=== PATIENT | female | born 1990 | race Caucasian/White ===

== ENCOUNTER 2016-12-23 16:41 | Emergency (ER) | payer SELFPAY ==
[~2016-12-23] VITALS: Ht 157.5 cm; Wt 70.3 kg
[~2016-12-23 16:41] MED LIST: APAP/BUTALBITAL1 TA1 PO; NOMEDS *; TYLENOL W/CODEI1 TA2 PO; VICODIN 5/500 T1 TAB PO; VOLTAREN75 MG PO; ZITHROMAX Z-PA250 M1 PO
[2016-12-23] MEDS ORDERED: ZOFRAN ODT4 MG PO (17:31)
--- NOTE | 2016-12-23 17:31 | [facility] Report ---
History of Present Issue Date/Time Seen by Provider 12/23/16 1723 Visit Reason Pt arrived:Walked Presenting Problem:PT STATES FEVER, VOMITING AND DIARRHEA FOR TWO DAYS Location if Accident: Onset of symptoms date/time:/ or onset unknown for:MEDICAL HX UNKNOWN Have you (or family members/close friends) recently traveled outside the [place]? N If Yes, where/when: Have you had exposure to infectious disease within the past month? TB? Other? Specify: c/o n/v/d since yesterday. "some better" today but sent home by work and needing note. Started yesterday. Vomited approx 6 times yesterda, only twice today. Loost diarrhea 4-6 times yesterday, only twice today. No blood, mucous, black in either stool or emesis. Denies abdominal pain or possibility of . Subjective fevers but afebrile. No treatment prior to arrival other than "not eating". Remains nauseated although eating very little. Still drinking well. Denies dysuria. Source patient Exam Limitations no limitations ALLERGIES Coded Allergies: No Known Allergies (12/11/16) Home Medications Reported Medications No Home Medications (NO HOME MEDICATIONS) 1 X * ONCE History Medical History General CAD? No Angina: No [place]: No Hypertension? No Hyperlipidemia? No CHF? No DVT? No PE? No COPD? No Asthma? No Anemia? No GERD? No Gastric ulcers? No GI Bleed? No Hernia? No Thyroid Problems? No Hypothyroidism? No CVA? No Seizures? No Diabetes? No Renal Insuffiency? No UTI? No Stones? No BPH? No GB Disease: No Nephritic Syndrome? No Asplenia? No Hepatitis? No Sickle Cell Disease? No Arthritis? No Migraines? No Cataracts? No Glaucoma? No MRSA? No HIV? No TB? No Anxiety? Yes Depression? Yes Cancer? No Site: N More? 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 Respiratory denies cough Cardiovascular denies chest pain Gastrointestinal see HPI Genitourinary see HPI. denies: frequency. Skin denies rash Psychiatric/Neurological headache Physical Exam Vital Signs Vital Signs Date Time Temp Pulse Resp B/P Pulse O2 O2 Flow FiO2 Ox Delivery Rate 12/23 1656 97.9 85 22 112/69 98 General Appearance normal appearance, no apparent distress Ear, Nose, Throat normal ENT inspection Neck non-tender Respiratory Status No: respiratory distress, productive cough, non productive cough. Lung Sounds anterior: lungs clear. posterior: lungs clear. bilateral: lungs clear. Cardiovascular regular rate/rhythm, no peripheral edema, no murmur Gastrointestinal non tender, soft, no organomegaly, abnormal bowel sounds ( hyperactive), no guarding, no rebound Back no CVA tenderness Neurologic alert, oriented x 3 Skin normal color, warm/dry Lymphatic no adenopathy Medical Decision Making LABS/Meds/Orders Pt receiving controlled substance in ED? No Results/Orders Current Medication Orders Sig/Lennox Start time Last Medication Dose Route Stop Time Status Admin Ondansetron HCl 4 MG ONCE ONE 12/23 1730 DC 12/23 IM 12/23 173 173 Ondansetron HCl 0 .STK-MED ONE 12/23 173 DC .ROUTE Departure Departure Time of Disposition 1729 Disposition DC Home or Self Care(routine) Clinical Impression Primary Impression: Viral gastroenteritis Condition STABLE Referrals NO REFERRAL See primary care or return here IMMEDIATELY for new or worsening symptoms OR no noticeable improvement over the next 48 hours Patient Instructions DI for Viral Gastroenteritis -- Adult Additional Instructions * zofran as needed. Should not cause drowsiness. You had this in clinic in shot form around 5:30pm * Monitor Temp. Tylenol every 4 hours as needed and/or ibuprofen every 6 hours as needed (as long as your primary care doctor has told you that it is ok to take both) for fever/aches/pain. ER if fever no less than 101 despite tylenol and ibuprofen * Follow up immediately for new or worsening symptoms OR no noticeable improvement over the next 48 hours. * Increase fluids. Water, gatorade, powerade, juice OR pedialyte with limited formula/dairy in children. * No food is ok as long as you or your child is drinking. Once ready to eat, start bland. bananas, rice, applesauce, toast * Contagious until no diarrhea, vomiting, fever x 24 hours without medication * Avoid anti-diarrheals unless told otherwise. Best to let the virus run its course. Follow up IMMEDIATELY for new or worsening symptoms OR no noticeable improvement over the next 48 hours. Discharge Counseling Counseled pt/family regarding diagnosis, medications/RX, home care, follow up needs Prescriptions Current Visit Scripts Ondansetron (Zofran 4MG Odt) 4 MG PO Q8HP PRN nausea and vomiting #9 ODT at 3858
[2016-12-23 17:47] VITALS: BP 112/69
== END 2016-12-23 17:51 | disposition home or self-care (01) ==
LOC: UTC 16:41
DX: A08.4 Viral intestinal infection, unspecified (principal); F41.8 Other specified anxiety disorders; Z72.0 Tobacco use
CPT/HCPCS: J2405